=== PATIENT | male | born 1985 | race Caucasian/White ===

== ENCOUNTER 2023-06-12 16:41 | Emergency (ER) | payer SELFPAY | END 2023-06-12 19:20 | LOC: JD.ED 16:41 | DX: F10.90 Alcohol use, unspecified, uncomplicated (principal); F17.210 Nicotine dependence, cigarettes, uncomplicated; Z88.5 Allergy status to narcotic agent; Z88.0 Allergy status to penicillin | CPT/HCPCS: 99282; 99283 ==